=== PATIENT | female | born 1950 | race Caucasian/White ===

== ENCOUNTER 2018-02-21 12:55 | Emergency (ER) | payer MEDICARE, OTHER ==
[~2018-02-21] VITALS: Ht 167.6 cm; Wt 75.0 kg
[2018-02-21 13:05] VITALS: BP 198/81; PULSE 78; RESP 16; TEMP 98.5; O2SAT 97
[2018-02-21] MEDS ORDERED: LORazepam 2 MG/ML VIAL IV PUSH ONE (13:15)
[2018-02-21] MEDS ORDERED: SODIUM CHLORIDE 0.9% FLUSH 10 ML FLUSH IVF PRN (13:15)
--- NOTE | 2018-02-21 13:18 | PD ---
HPI Chief Complaint: Syncope/Near-Syncope Time Seen by Provider: 13:08 Travel History International Travel<30 days: No Contact w/Intl Traveler<30days: No Traveled to known affect area: No History of Present Illness HPI 68-year-old female patient with history of CAD with stents, hypertension, presents to the ER today from cardiology office, apparently was getting a stress test done today and was administered Aminophyllin, and then started getting very jittery, tremors, nausea. She denies any rashes, throat closing, vomiting, or other symptoms. She states that is starting to subside now. They sent her in for further evaluation. Modifying Factors: None Associated Signs & Symptoms: Nausea, tremors, anxiety after given medication during stress test Risk Factors: None PFSH Social History Tobacco Use: No Allergies-Medications (Allergen,Severity, Reaction): Coded Allergies: ibuprofen (Unverified Allergy, Severe, 07/11/17) Reported Meds & Prescriptions Reported Meds & Active Scripts Active Reported Zinc Gluconate 30 Mg Tab 30 Mg PO DAILY Trazodone (Trazodone HCl) 100 Mg Tablet 100 Mg PO HS Tizanidine (Tizanidine HCl) 2 Mg Tab 2 Mg PO TID Pantoprazole (Pantoprazole Sodium) 40 Mg Tab 40 Mg PO DAILY Nitroglycerin SL (Nitroglycerin) 0.4 Mg Subl 0.4 Mg SL DIRECTED PRN ONE TABLET UNDER THE TONGUE NEEDED FOR CHEST PAIN, MAY REPEAT EVERY FIVE MINUTES FOR A TOTAL OF 3 DOSES OR CALL 911 IF NO RELIEF Metoprolol Succinate ER 24 HR (Metoprolol Succinate) 25 Mg Tab 25 Mg PO DAILY Mag64 (Magnesium Chloride) 64 Mg Tab 64 Mg PO DAILY Lisinopril 5 Mg Tab 5 Mg PO DAILY Gabapentin 300 Mg Cap 300 Mg PO BID Folic Acid 0.4 Mg Tab 400 Mcg PO DAILY Calcium + D3 (Calcium Carbonate-Cholecalciferol) 600-200 Mg-Unit Tab 1 Tab PO BID Baclofen 10 Mg Tab 10 Mg PO TID Atorvastatin (Atorvastatin Calcium) 80 Mg Tab 80 Mg PO HS Aspirin Low Dose (Aspirin) 81 Mg Chew 81 Mg CHEW DAILY Aspirin 81 Mg Chew 81 Mg CHEW DAILY Review of Systems Except as stated in HPI: all other systems reviewed are Neg Physical Exam Narrative GENERAL: Anxious appearing well-developed tremulous elderly female patient currently and mild distress. Awake and oriented 3. SKIN: Focused skin assessment warm/dry. HEAD: Atraumatic. Normocephalic. EYES: Pupils equal and round. No scleral icterus. No injection or drainage. ENT: No nasal bleeding or discharge. Mucous membranes pink and moist. NECK: Trachea midline. No JVD. Supple. CARDIOVASCULAR: Regular rate and rhythm. No murmur appreciated. RESPIRATORY: No accessory muscle use. Clear to auscultation. Breath sounds equal bilaterally. GASTROINTESTINAL: Abdomen soft, non-tender, nondistended. Hepatic and splenic margins not palpable. MUSCULOSKELETAL: No obvious deformities. No clubbing. No cyanosis. No edema. NEUROLOGICAL: Awake and alert. No obvious cranial nerve deficits. Motor grossly within normal limits. Normal speech. Tremulous. PSYCHIATRIC: Appropriate mood and affect; insight and judgment normal. Data Data Last Documented VS Vital Signs Date Time Temp Pulse Resp B/P (MAP) Pulse Ox O2 Delivery O2 Flow Rate FiO2 02/21/18 15:00 68 16 142/69 (93) 96 Nasal Cannula 2.00 02/21/18 13:05 98.5 Orders Orders Electrocardiogram (02/21/18 13:08) Complete Blood Count With Diff (02/21/18 13:08) Comprehensive Metabolic Panel (02/21/18 13:08) Magnesium (Mg) (02/21/18 13:08) Ckmb (Isoenzyme) Profile (02/21/18 13:08) Troponin I (02/21/18 13:08) Act Partial Throm Time (Ptt) (02/21/18 13:08) Prothrombin Time / Inr (Pt) (02/21/18 13:08) Urinalysis - C+S If Indicated (02/21/18 13:08) Chest, Single Ap (02/21/18 13:08) Ecg Monitoring (02/21/18 13:08) Iv Access Insert/Monitor (02/21/18 13:08) Oximetry (02/21/18 13:08) Sodium Chloride 0.9% Flush (Ns Flush) (02/21/18 13:15) Lorazepam Inj (Ativan Inj) (02/21/18 13:15) Ed Discharge Order (02/21/18 17:03) Labs Laboratory Tests Test 02/21/18 13:24 02/21/18 14:33 White Blood Count 11.1 TH/MM3 Red Blood Count 4.88 MIL/MM3 Hemoglobin 14.7 GM/DL Hematocrit 43.8 % Mean Corpuscular Volume 89.8 FL Mean Corpuscular Hemoglobin 30.1 PG Mean Corpuscular Hemoglobin Concent 33.5 % Red Cell Distribution Width 15.0 % Platelet Count 291 TH/MM3 Mean Platelet Volume 8.0 FL Neutrophils (%) (Auto) 79.3 % Lymphocytes (%) (Auto) 14.0 % Monocytes (%) (Auto) 6.0 % Eosinophils (%) (Auto) 0.3 % Basophils (%) (Auto) 0.4 % Neutrophils # (Auto) 8.8 TH/MM3 Lymphocytes # (Auto) 1.6 TH/MM3 Monocytes # (Auto) 0.7 TH/MM3 Eosinophils # (Auto) 0.0 TH/MM3 Basophils # (Auto) 0.0 TH/MM3 CBC Comment DIFF FINAL Differential Comment Prothrombin Time 9.9 SEC Prothromb Time International Ratio 1.0 RATIO Activated Partial Thromboplast Time 27.9 SEC Blood Urea Nitrogen 13 MG/DL Creatinine 1.03 MG/DL Random Glucose 104 MG/DL Total Protein 7.8 GM/DL Albumin 3.8 GM/DL Calcium Level 9.4 MG/DL Magnesium Level 2.0 MG/DL Alkaline Phosphatase 93 U/L Aspartate Amino Transf (AST/SGOT) 17 U/L Alanine Aminotransferase (ALT/SGPT) 24 U/L Total Bilirubin 0.7 MG/DL Sodium Level 138 MEQ/L Potassium Level 4.2 MEQ/L Chloride Level 108 MEQ/L Carbon Dioxide Level 20.5 MEQ/L Anion Gap 10 MEQ/L Estimat Glomerular Filtration Rate 53 ML/MIN Total Creatine Kinase 65 U/L Troponin I LESS THAN 0.02 NG/ML Urine Color YELLOW Urine Turbidity CLEAR Urine pH 5.0 Urine Specific [place] 1.015 Urine Protein NEG mg/dL Urine Glucose (UA) NEG mg/dL Urine Ketones NEG mg/dL Urine Occult Blood NEG Urine Nitrite NEG Urine Bilirubin NEG Urine Urobilinogen LESS THAN 2.0 MG/DL Urine Leukocyte Esterase NEG Urine RBC 2 /hpf Urine WBC 1 /hpf Urine Squamous Epithelial Cells 2 /hpf Urine Amorphous Sediment RARE Urine Bacteria RARE /hpf Urine Mucus FEW /lpf Microscopic Urinalysis Comment CULT NOT INDICATED MDM Medical Decision Making Medical Screen Exam Complete: Yes Emergency Medical Condition: Yes Medical Record Reviewed: Yes Interpretation(s) EKG shows NSR, no ST elevation or depression, and no arrhythmias. No significant T-wave inversions. Laboratory Tests Test 02/21/18 13:24 02/21/18 14:33 White Blood Count 11.1 TH/MM3 (4.0-11.0) Neutrophils (%) (Auto) 79.3 % (16.0-70.0) Neutrophils # (Auto) 8.8 TH/MM3 (1.8-7.7) Creatinine 1.03 MG/DL (0.50-1.00) Chloride Level 108 MEQ/L (98-107) Carbon Dioxide Level 20.5 MEQ/L (21.0-32.0) Estimat Glomerular Filtration Rate 53 ML/MIN (>89) Troponin I LESS THAN 0.02 NG/ML Urine Bacteria RARE /hpf (NONE) Urine Mucus FEW /lpf (OCC) Last 24 hours Impressions Chest X-Ray 02/21/18 1308 Signed Impressions: Service Date/Time: Wednesday, February 21, 2018 13:28 - CONCLUSION: No acute disease. Johnny Powell Jr., MD Differential Diagnosis Dysrhythmias versus anxiety attack versus medication side effect versus metabolic issues Narrative Course Patient appears acutely anxious and tremulous and Ativan was given in the ER. Lab work was fairly unremarkable for any significant metabolic issues. Her EKG did not show any signs of acute dysrhythmias. Symptoms subsided in the ER during several hours of ER observation. I suspect that the symptoms are secondary to medication side effect, Aminophyllin can give tremors, seizure- like episodes, and similar symptoms. At this point, case was discussed with Dr. Spencer of cardiology who was monitoring the stress test, and he does not feel that this is cardiac related, and agrees that there could be some side effects with Aminophyllin. At this point, my plan would be to release her with follow-up to primary care doctor and cardiology. Return for worsening in symptoms as necessary. The plan has been discussed with her and she states understanding. Diagnosis Primary Impression: Medication side effect Disposition: 01 DISCHARGE HOME Condition: Stable Jade Caballero MD Feb 21, 2018 13:18
[2018-02-21 13:47] LABS: AUTOMATED NEUTROPHIL # 8.8 TH/MM3 (1.8-7.7); BASOPHIL % 0.4 % (0.0-2.0); EOSINOPHIL % 0.3 % (0.0-4.0); HEMATOCRIT 43.8 % (35.0-46.0); HEMOGLOBIN 14.7 GM/DL (11.6-15.3); LYMPHOCYTE # 1.6 TH/MM3 (1.0-4.8); MEAN CELL VOLUME 89.8 FL (80.0-100.0); MEAN CORPUSCULAR HEMOGLOBIN 30.1 PG (27.0-34.0); MEAN CORPUSCULAR HGB CONC 33.5 % (32.0-36.0); MONOCYTE # 0.7 TH/MM3 (0-0.9); NEUT % 79.3 % (16.0-70.0); PLATELET COUNT 291 TH/MM3 (150-450); RED BLOOD COUNT 4.88 MIL/MM3 (4.00-5.30); WHITE BLOOD COUNT 11.1 TH/MM3 (4.0-11.0)
[2018-02-21 14:00] VITALS: BP 131/66; PULSE 74; RESP 19; O2SAT 96
[2018-02-21 14:00] LABS: PROTHROMBIN TIME - PATIENT 9.9 SEC (9.8-11.6)
[2018-02-21 14:06] LABS: ALT (GPT) 24 U/L (10-53)
[2018-02-21 14:14] LABS: ALBUMIN 3.8 GM/DL (3.4-5.0); ALKALINE PHOSPHATASE 93 U/L (45-117); AST (GOT) 17 U/L (15-37); BICARBONATE 20.5 MEQ/L (21.0-32.0); BLOOD UREA NITROGEN 13 MG/DL (7-18); CALCIUM 9.4 MG/DL (8.5-10.1); CHLORIDE 108 MEQ/L (98-107); CREATININE 1.03 MG/DL (0.50-1.00); GLOMERULAR FILTRATION RATE 53 ML/MIN (>89); GLUCOSE,RANDOM 104 MG/DL (74-106); SODIUM (NA) 138 MEQ/L (136-145); TOTAL BILIRUBIN ADULT 0.7 MG/DL (0.2-1.0); TOTAL PROTEIN 7.8 GM/DL (6.4-8.2); TROPONIN I LESS THAN 0.02 NG/ML (0.02-0.05)
--- NOTE | 2018-02-21 14:26 | RADRPT ---
EXAM DATE/TIME: 02/21/2018 13:28 [facility] COMPARISON: No previous studies available for comparison. INDICATIONS : Medication reaction, rash, short of breath, chest tightness. MEDICAL HISTORY : Myocardial infarction. SURGICAL HISTORY : Coronary artery stent. ENCOUNTER: Initial ACUITY: 1 day PAIN SCORE: 0/10 LOCATION: Bilateral chest FINDINGS: A single view of the chest demonstrates the lungs to be symmetrically aerated without evidence of mas s, infiltrate or effusion. Linear scarring versus atelectasis within the right middle lobe The cardio mediastinal contours are unremarkable. Osseous structures are intact. CONCLUSION: No acute disease. Johnny Powell Jr., MD on February 21, 2018 at 14:23 Board Certified Radiologist. This report was verified electronically.
[2018-02-21] MEDS ORDERED: ASPI81CH6 CHEW (14:44)
[2018-02-21] MEDS ORDERED: PANT40TA3 PO (14:44)
[2018-02-21] MEDS ORDERED: METO1TAB42 PO (14:44)
[2018-02-21] MEDS ORDERED: CALC600T10 PO (14:44)
[2018-02-21] MEDS ORDERED: LISI-519 PO (14:44)
[2018-02-21] MEDS ORDERED: BACL10TA PO (14:44)
[2018-02-21] MEDS ORDERED: ATOR80TA45 PO (14:44)
[2018-02-21] MEDS ORDERED: GABA300C5 PO (14:44)
[2018-02-21] MEDS ORDERED: FOLI400T PO (14:44)
[2018-02-21] MEDS ORDERED: ZINC30TA PO (14:44)
[2018-02-21] MEDS ORDERED: TRAZ100T10 PO (14:44)
[2018-02-21] MEDS ORDERED: NITR1SUB3 SL (14:44)
[2018-02-21] MEDS ORDERED: MAGN64 PO (14:44)
[2018-02-21] MEDS ORDERED: TIZA2TAB PO (14:44)
[2018-02-21] MEDS ORDERED: ASPI-516 CHEW (14:44)
[2018-02-21 15:00] VITALS: BP 142/69; PULSE 68; RESP 16; O2SAT 96
[2018-02-21 15:45] LABS: AMORPHOUS SEDIMENT, URINE RARE; BACTERIA, URINE RARE /hpf; BILIRUBIN, URINE NEG (NEG); BLOOD, URINE NEG (NEG); GLUCOSE,URINE NEG (NEG); KETONE, URINE NEG (NEG); MUCUS URINE FEW /lpf (OCC); NITRITE,URINE NEG (NEG); SQUAMOUS EPITHELIAL CELL URINE 2 /hpf (0-5); URINE COLOR YELLOW (YELLW/STRAW); URINE LEUKOCYTE ESTERASE NEG (NEG)
[2018-02-21 17:00] VITALS: BP 139/67; PULSE 74; RESP 16; O2SAT 97
--- NOTE | 2018-02-22 12:19 | EKG ---
Date Performed: 02/21/2018 Time Performed: 13:08:21 PTAGE: 68 years EKG: Sinus rhythm NONSPECIFIC T-WAVE ABNORMALITY BORDERLINE ECG INTERPRETATION BASED ON A DEFAULT AGE OF 40 YEARS NO PREVIOUS TRACING DOCTOR: Mango Zambrano Interpretating Date/Time 02/22/2018 12:16:22
--- NOTE | 2018-02-22 12:29 | EKG ---
Date Performed: 02/21/2018 Time Performed: 13:30:14 PTAGE: 68 years EKG: Sinus rhythm NONSPECIFIC T-WAVE ABNORMALITY BORDERLINE ECG INTERPRETATION BASED ON A DEFAULT AGE OF 40 YEARS PREVIOUS TRACING : 02/21/2018 13.08 Since the previous tracing, no significant change not ed DOCTOR: Mango Zambrano Interpretating Date/Time 02/22/2018 12:29:04
== END 2018-02-21 18:30 | disposition home or self-care (01) ==
LOC: NEPE 12:55
DX: G25.1 Drug-induced tremor (principal); T48.6X5A Adverse effect of antiasthmatics, initial encounter; I10 Essential (primary) hypertension; I25.10 Atherosclerotic heart disease of native coronary artery without angina pectoris
CPT/HCPCS: 71045; 80053; 81001; 82550; 83735; 84484; 85025; 85610; 85730; 93005; 96374; 99285; J2060